=== PATIENT | female | born 1955 | race Caucasian/White ===

== ENCOUNTER → 2018-09-09 | Outpatient (CLI) | payer OTHER ==
[~2018-09-09] MED LIST: ANAPROX DS550 MG PO; CIPROFLOXACIN500 MG PO
== END | disposition home or self-care (01) ==
LOC: CARD 07:54
DX: I07.1 Rheumatic tricuspid insufficiency (principal); R01.1 Cardiac murmur, unspecified

== ENCOUNTER → 2021-07-11 | Outpatient (CLI) | payer OTHER | END | disposition home or self-care (01) | LOC: RAD 08:26 → MAMMO 09:30 | PROVIDERS: ATTEND Internal Medicine | DX: Z12.31 Encounter for screening mammogram for malignant neoplasm of breast (principal); Z13.820 Encounter for screening for osteoporosis; Z78.0 Asymptomatic menopausal state ==

== ENCOUNTER → 2022-07-15 | Outpatient (CLI) | payer OTHER | END | disposition home or self-care (01) | LOC: MAMMO 08:11 | PROVIDERS: ATTEND Internal Medicine | DX: Z12.31 Encounter for screening mammogram for malignant neoplasm of breast (principal) ==

== ENCOUNTER → 2023-11-12 | Outpatient (CLI) | payer OTHER ==
[~2023-11-12] MED LIST changes: +AMLODIPINE BESYL5 MG PO; +FLECAINIDE ACE100 M1 PO; +LIPITOR10 MG PO; +LISINOPRIL20 MG PO; +LOSARTAN POTASS50 M1 PO; +MEDI-FIRST ASP325 MG PO; +METOPROLOL TART50 M1 PO; +NORVASC5 MG PO; +SYNTHROID,LEV125 MCG PO; +XARE20MG PO; +ZESTORETIC 20-1 EACH PO
== END | disposition home or self-care (01) ==
LOC: MAMMO 00:42
PROVIDERS: ATTEND Internal Medicine
DX: Z12.31 Encounter for screening mammogram for malignant neoplasm of breast (principal)

== ENCOUNTER → 2024-11-29 | Outpatient (CLI) | payer OTHER | END | disposition home or self-care (01) | LOC: MAMMO 09:46 | PROVIDERS: ATTEND Internal Medicine | DX: Z12.31 Encounter for screening mammogram for malignant neoplasm of breast (principal); R92.313 Mammographic fatty tissue density, bilateral breasts ==